=== PATIENT | female | born 1995 | race African-American/Black ===

== ENCOUNTER 2024-07-13 04:05 | Day surgery (SDC) | payer OTHER ==
[2024-07-11 12:04] VITALS: BMI 28.7
[2024-07-13] MEDS ORDERED: BUPIVACAINE HCL/PF 0.25% (2.5MG/ML) 10 ML VIAL ONE (07:51)
[2024-07-13] MEDS ORDERED: MIDAZOLAM HCL 2 MG/2 ML SINGLE DOSE VIAL ONE ×3 (07:52→08:33)
[2024-07-13] MEDS ORDERED: PROPOFOL 60 ML ONE (07:52)
[2024-07-13] MEDS ORDERED: ONDANSETRON 4 MG/2 ML VIAL IVPUSH PRN (08:00)
[2024-07-13] MEDS ORDERED: DEXMEDETOMIDINE HCL 200 MCG/2 ML IVPB ONE (08:04)
[2024-07-13] MEDS ORDERED: LIDOCAINE HCL 1%, 10 MG/ML (20ML VIAL) ONE (08:33)
[2024-07-13] MEDS: CLINDAMYCIN 900 MG PREMIX BAG IVPB ONE ×2 (08:35→08:48)
[2024-07-13] MEDS: LIDOCAINE HCL 1%, 10 MG/ML (50 mL VIAL) INF ONE ×2 (08:45)
[2024-07-13] MEDS: BUPIVACAINE HCL/PF 0.25% (2.5MG/ML) 10 ML VIAL IJ ONE ×3 (08:45)
[2024-07-13] MEDS: LACTATED RINGERS SOLUTION 1,000 ML IV SCH (09:36)
[2024-07-13] MEDS ORDERED: KETOROLAC TROMETHAMINE 30 MG/1 ML VIAL ONE (10:28)
[2024-07-13] MEDS ORDERED: ACETAMINOPHEN INJECTION 100 ML IVPB ONE (10:28)
[2024-07-13] MEDS: KETOROLAC TROMETHAMINE 30 MG/1 ML VIAL IVPUSH ONE (10:32)
[2024-07-13] MEDS: ACETAMINOPHEN 1000 MG/100 ML BAG IVPB ONE (10:35)
[2024-07-13 12:16] VITALS: RESP 16; TEMP 98.1
[2024-07-13] MEDS: oxyCODONE HCL 5 MG TABLET PO PRN (12:41)
[2024-07-13] MEDS ORDERED: oxyCODONE HCL 5 MG TABLET ONE (12:42)
[2024-07-13 14:09] VITALS: BP 105/55; PULSE 68
== END 2024-07-13 13:45 | disposition home or self-care (01) ==
LOC: JASU-SURG 04:05
PROVIDERS: ATTEND Surgery
PROC: 06BY0ZC Excision of Hemorrhoidal Plexus, Open Approach (ICD-10-PCS; 2024-07-13)
PROC: 06BY4ZC Excision of Hemorrhoidal Plexus, Percutaneous Endoscopic Approach (ICD-10-PCS; principal; 2024-07-13 08:00)
DX: K64.8 Other hemorrhoids (principal)
CPT/HCPCS: 81025; 88304-TC; 94760; J0131